=== PATIENT | male | born 1955 ===

== ENCOUNTER → 2024-12-23 | Outpatient (CLI) | payer BC ==
[~2024-12-23] VITALS: Ht 172.7 cm; Wt 97.5 kg
== END | disposition home or self-care (01) ==
LOC: Rad HDHVI 08:35
PROVIDERS: ATTEND Internal Medicine Cardiovascular Disease
DX: I49.1 Atrial premature depolarization (principal); I49.3 Ventricular premature depolarization; R00.0 Tachycardia, unspecified; R00.1 Bradycardia, unspecified; I10 Essential (primary) hypertension; E78.5 Hyperlipidemia, unspecified
CPT/HCPCS: 78452; 93017; A9500; 96374